=== PATIENT | male | born 1965 | race Caucasian/White ===

== ENCOUNTER 2022-02-09 12:57 | Outpatient (CLI) | payer BC, SELFPAY ==
--- NOTE | 2022-02-09 | ECG_ITS ---
Measurements Intervals [place] Rate: 90 P: 46 ID: 191 QRS: -32 QRSD: 98 T: 46 QT: 351 QTc: 430 Interpretive Statements SINUS RHYTHM WITH SINUS ARRHYTHMIA LEFT AXIS DEVIATION BASELINE WANDER- I, AVR, AVL BORDERLINE ECG NO PREVIOUS ECG AVAILABLE FOR COMPARISON Electronically Signed On 02-09-2022 15:50:52 CDT by Lance Johns D.O.
[2022-02-09 13:28] LABS: Hematocrit 45.2 % (42.0-52.0); Hemoglobin 15.5 g/dL (14.0-18.0); Mean Corpuscular HGB Conc 34.3 g/dl (32-36); Mean Corpuscular Hemoglobin 31.2 pg (26-34); Mean Corpuscular Volume 90.9 fl (80-100); Mean Platelet Volume 9.9 fl (7.4-10.4); Platelet Count Result 241 k/mm3 (150-375); Red Blood Count 4.97 M/mm3 (4.6-6.20); Red Cell Distribution Width 12.5 % (11.5-14.5); White Blood Count 7.2 K/mm3 (4.5-10.0)
[2022-02-09 13:39] LABS: Alanine Aminotransferase 26 U/L (6-50); Albumin Level 4.4 g/dL (3.5-5.1); Alkaline Phosphatase 85 U/L (38-126); Anion Gap 10 mmol/L (8-16); Aspartate Amino Transferase 27 U/L (17-59); Bilirubin,Total 0.6 mg/dL (0.2-1.3); Blood Urea Nitrogen 13 mg/dL (9-20); Calcium 9.1 mg/dL (8.4-10.2); Carbon Dioxide 28 mmol/L (22-30); Chloride 103 mmol/L (98-107); Estimated Glomerular Filt Rate > 60; Glucose 100 mg/dL (65-110); Potassium 3.6 mmol/L (3.4-5.0); Sodium 141 mmol/L (137-145)
== END 2022-02-09 12:58 | disposition home or self-care (01) ==
PROVIDERS: PCP Orthopaedic Surgery; Visit Provider Orthopaedic Surgery
DX: Z01.818 Encounter for other preprocedural examination (principal); R94.31 Abnormal electrocardiogram [ECG] [EKG]
CPT/HCPCS: 36415; 80053; 85027; 93005

== ENCOUNTER 2022-09-04 08:24 | Outpatient (CLI) | payer BC, SELFPAY ==
--- NOTE | 2022-09-04 | ECG_ITS ---
Measurements Intervals [place] Rate: 61 P: 48 IN: 191 QRS: -34 QRSD: 96 T: 31 QT: 406 QTc: 412 Interpretive Statements SINUS RHYTHM MARKED LEFT AXIS DEVIATION [QRS AXIS < -30] ABNORMAL ECG COMPARED TO ECG 02/09/2022 13:49:29 NO SIGNIFICANT CHANGES Electronically Signed On 09-04-2022 15:29:52 CDT by Tavo Grant M.D.
[2022-09-04 08:49] LABS: Hematocrit 46.2 % (42.0-52.0); Hemoglobin 15.5 g/dL (14.0-18.0); Mean Corpuscular HGB Conc 33.5 g/dl (32-36); Mean Corpuscular Hemoglobin 31.2 pg (26-34); Mean Platelet Volume 10.1 fl (7.4-10.4); Platelet Count Result 257 k/mm3 (150-375); Red Blood Count 4.97 M/mm3 (4.6-6.20); Red Cell Distribution Width 13.1 % (11.5-14.5); White Blood Count 5.7 K/mm3 (4.5-10.0)
[2022-09-04 10:07] LABS: Alanine Aminotransferase 28 U/L (6-50); Albumin Level 4.5 g/dL (3.5-5.1); Alkaline Phosphatase 88 U/L (38-126); Anion Gap 6 mmol/L (8-16); Aspartate Amino Transferase 27 U/L (17-59); Blood Urea Nitrogen 29 mg/dL (9-20); Calcium 8.9 mg/dL (8.4-10.2); Carbon Dioxide 30 mmol/L (22-30); Chloride 104 mmol/L (98-107); Estimated Glomerular Filt Rate > 60; Glucose 112 mg/dL (65-110); Potassium 3.9 mmol/L (3.4-5.0); Sodium 140 mmol/L (137-145)
== END 2022-09-04 08:25 | disposition home or self-care (01) ==
PROVIDERS: PCP Orthopaedic Surgery; Visit Provider Orthopaedic Surgery
DX: Z01.818 Encounter for other preprocedural examination (principal)
CPT/HCPCS: 36415; 80053; 85027; 93005

== ENCOUNTER 2024-02-28 15:39 | Emergency (ER) | payer BC, SELFPAY ==
--- NOTE | ~2024-02-28 | XR_ITS ---
EXAMINATION: XR foot RT min 3V DATE: 02/28/2024 16:06 INDICATION: Right foot pain. TECHNIQUE: 4 views of right foot were obtained. COMPARISON: None. FINDINGS: Alignment is normal. No fracture. There is mild osteoarthritis of first metatarsophalangeal joint and some of the interphalangeal joints and midfoot joints. There is an enthesophyte at plantar aspect of calcaneal tuberosity. IMPRESSION: 1. Mild polyarticular osteoarthritis. Reviewed, dictated and finalized at location A.
[2024-02-28 15:50] VITALS: BP 151/92; PULSE 75; RESP 18; TEMP 36.4; O2SAT 98
--- NOTE | 2024-02-28 16:39 | ED.LOWEXIN ---
HPI - Extremity Injury (Lower) General Chief Complaint: Extremity Injury, Lower Stated Complaint: Injured Right Foot Time Seen by Provider: 02/28/24 16:28 Source: patient, family () and RN notes reviewed Mode of arrival: ambulatory Limitations: no limitations History of Present Illness HPI Narrative: Patient presents today with pain in the right foot. Two days ago he missed a step on his porch and step-down approximately 18 in injuring his foot. Denies numbness or tingling. He has been taking ibuprofen and Tylenol with some relief. Pain increases with weight-bearing. Related Data Home Medications Medication Instructions Recorded Confirmed multivitamin (Multiple Vitamins 1 tablet PO DAILY 07/01/23 01/07/24 tablet) Allergies Allergy/AdvReac Type Severity Reaction Status Date / Time No Known Allergies Allergy Verified 01/07/24 11:31 Review of Systems Review of Systems: CONSTITUTIONAL: Denies body aches, fever, chills, or sweats. EYES: Denies visual changes, redness, or discharge. ENT: Denies rhinorrhea, congestion, sore throat, or otalgia. CARDIOVASCULAR: Denies chest pain, palpitations, or edema. RESPIRATORY: Denies cough or dyspnea. GASTROINTESTINAL: Denies abdominal pain, nausea, vomiting, or diarrhea. GENITOURINARY: Denies dysuria or hematuria. SKIN: Denies rash, itching, or wounds. MUSCULOSKELETAL: Denies back pain. + right foot pain NEUROLOGIC: Denies headache, numbness, tingling, or weakness. PSYCH: Denies depression or anxiety. [facility] Past Medical History Medical History Hypertension Surgical History Surgical History Hx of prostate biopsy 2009 Family History Family History Father Hypertension Heart disease Cerebrovascular accident Sibling Hypertension Mother Diabetes mellitus Anxiety and depression Social History Social History Smoking status: Never smoker Alcohol intake: never Substance use type: does not use Lack of Transportation: No Lack of Food: Never True Current Housing: Decline to Answer Concerned About Future Housing: Decline to Answer Difficulty Paying Gas/Electric Bills: Decline to Answer Difficulty Paying for Meds: Decline to Answer Currently Unemployed: Decline to Answer Education: Decline to Answer Comments At time of signature, I have reviewed and agree with nursing past medical, surgical, social and family history unless otherwise noted. Please see nursing chart for further information. There is no relevant family history pertinent to the presenting complaint Exam Narrative: GENERAL: Well-appearing, well-nourished, and in no acute distress. HEAD: Normocephalic, atraumatic. EYES: EOMI. No redness or drainage. Conjunctivae normal. ENT: Mucous membranes pink and moist. NECK: Normal AROM. CHEST: No respiratory distress. EXTREMITIES: Right foot: Patient localizes pain to the midfoot, dorsal aspect. No edema, ecchymosis noted. Nontender to palpation. Distal sensation intact. Capillary refill normal. Pedal pulse normal. Full range of motion of the toes and ankle. Ankle nontender. SKIN: Warm, dry, no rash. Capillary refill normal. Normal skin turgor. NEURO: No focal deficits. Alert and oriented x3. Gait steady. PSYCH: Normal affect. No signs of depression or anxiety. Course Course Level of Care: Express Care Visit Vital Signs Vital signs: Vital Signs Temperature 97.5 F L 02/28/24 15:50 Pulse Rate 75 02/28/24 15:50 Respiratory Rate 18 02/28/24 15:50 Blood Pressure 151/92 H 02/28/24 15:50 Pulse Oximetry 98 02/28/24 15:50 Oxygen Delivery Room Air 02/28/24 15:50 Temperature 97.5 F L 02/28/24 15:50 Pulse Rate 75 02/28/24 15:50 Respiratory
== END 2024-02-28 16:41 | disposition home or self-care (01) ==
PROVIDERS: Emergency Provider Nurse Practitioner; PCP Nurse Practitioner
DX: S96.911A Strain of unspecified muscle and tendon at ankle and foot level, right foot, initial encounter (principal); W10.9XXA Fall (on) (from) unspecified stairs and steps, initial encounter; I10 Essential (primary) hypertension
CPT/HCPCS: 73630; 99213; G0463

== ENCOUNTER 2024-04-02 13:07 | Emergency (ER) | payer BC, SELFPAY ==
[2024-04-02 13:12] VITALS: BP 150/87; PULSE 88; RESP 16; TEMP 36.2; O2SAT 98
[2024-04-02 13:19] VITALS: O2SAT 100
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
[2024-04-02] MEDS: TETANUS,DIPHTHERIA,AC PERTUSSIS ADULT (0.5 ML) BOOSTRIX IM (15:30)
[2024-04-02 15:32] VITALS: BP 155/96; PULSE 78; RESP 18; O2SAT 100
[2024-04-02] MEDS: predniSONE 20 MG TABLET 60 MG PO (18:00)
== END 2024-04-02 18:34 | disposition home or self-care (01) ==
PROVIDERS: Emergency Provider General Practice; PCP Nurse Practitioner
DX: H16.203 Unspecified keratoconjunctivitis, bilateral (principal); S05.8X2A Other injuries of left eye and orbit, initial encounter; S05.8X1A Other injuries of right eye and orbit, initial encounter; Z23 Encounter for immunization; I10 Essential (primary) hypertension; W40.8XXA Explosion of other specified explosive materials, initial encounter
CPT/HCPCS: 90471; 90715; 99283; A9270; J7512

== ENCOUNTER 2024-10-31 18:53 | Emergency (ER) | payer MEDICARE, SELFPAY ==
--- NOTE | 2024-10-31 18:54 | ED_ITS ---
HPI - URI/Sore Throat General Chief Complaint: Upper Respiratory Infection Stated Complaint: Sinus Infection Symptoms Source: patient and RN notes reviewed Mode of arrival: ambulatory Limitations: no limitations History of Present Illness HPI Narrative: Patient is a 59-year-old male who presents to the [facility] with complaints of sinus pain and pressure, nasal congestion, and left ear pain. He states that his symptoms have been present for the last few days. He states that he now has pain that radiates from the left ear with tenderness behind the ear. He endorses an infrequent nonproductive cough but denies chest pain or shortness of breath. He denies known fevers. His respirations are unlabored. He does not appear in any acute distress. Related Data Home Medications ?Medication ?Instructions ?Recorded ?Confirmed ?Last Taken ?Type multivitamin (Multiple Vitamins 1 tablet PO DAILY 07/01/23 10/31/24 Unknown History tablet) metaxalone 800 mg tablet mg PO 07/05/24 07/05/24 Unknown History Allergies Allergy/AdvReac Type Severity Reaction Status Date / Time No Known Allergies Allergy Verified 10/31/24 19:05 Review of Systems Review of Systems: CONSTITUTIONAL: Denies fever, chills, or sweats. EYES: Denies visual changes, redness, or discharge. ENT: Reports otalgia but denies sore throat. Reports congestion. CARDIOVASCULAR: Denies chest pain, palpitations, or edema. RESPIRATORY: Denies cough or dyspnea. GASTROINTESTINAL: Denies abdominal pain, nausea, vomiting, or diarrhea. GENITOURINARY: Denies dysuria or hematuria. SKIN: Denies rash or itching. MUSCULOSKELETAL: Denies back pain, joint pain, or myalgia. NEUROLOGIC: Denies headache, numbness, or weakness. Pertinent positives per HPI. [facility] Past Medical History Medical History Hypertension Surgical History Surgical History Hx of lumbosacral spine surgery x2 2004 and 2009 Hx of prostate biopsy 2009 Family History Family History Father Hypertension Heart disease Cerebrovascular accident Sibling Hypertension Mother Diabetes mellitus Anxiety and depression Social History Social History Smoking status: Never smoker Alcohol intake: never Substance use type: does not use Lack of Transportation: No Lack of Food: Never True Current Housing: Decline to Answer Concerned About Future Housing: Decline to Answer Difficulty Paying Gas/Electric Bills: Decline to Answer Difficulty Paying for Meds: Decline to Answer Currently Unemployed: Decline to Answer Education: Decline to Answer Comments At the time of my signature, I reviewed and agree with the nursing past medical, surgical, social, and family history. There is no relevant family history pertinent to the patient complaint. Exam Narrative: GENERAL: This is a well-nourished, well-developed patient, in no apparent distress. HEAD: normocephalic, atraumatic. EYES: Sclera clear/white. Vision is grossly intact. EARS: External ears normal, auditory canals clear and without drainage, Right TM normal without perforation. Left TM erythematous and bulging. No mastoid tenderness. Hearing grossly intact. NOSE: External nose normal with no obvious nasal discharge, nares without redness, no rhinorrhea. THROAT: Mucous membranes moist, posterior pharynx clear. NECK: Neck supple, non-tender without lymphadenopathy, masses or thyromegaly. CARDIOVASCULAR: Regular rate and rhythm without murmurs, gallops, or rubs. RESPIRATORY: Clear to auscultation. Breath sounds equal bilaterally. No wheezes, rales, or rhonchi. GASTROINTESTINAL: Abdomen soft, non-tender, nondistended. Bowel sounds are active. No hepato-splenomegaly, or palpable masses. No guarding. SKIN: warm, intact with no suspicious lesions or rash, good texture and turgor. NEURO: awake, alert, and oriented to person, place and time. There were no obvious focal neurologic abnormalities. Course Course Level of Care: Express Care Visit Vital Signs Vital signs: Vital Signs Temperature 97.5 F L 10/31/24 18:59 Pulse Rate 79 10/31/24 18:59 Respiratory Rate 18 10/31/24 18:59 Blood Pressure 155/92 H 10/31/24 18:59 Pulse Oximetry 97 10/31/24 18:59 Oxygen Delivery Room Air 10/31/24 18:59 Temperature 97.5 F L 10/31/24 18:59 Pulse Rate 79 10/31/24 18:59 Respiratory Rate 18 10/31/24 18:59 Blood Pressure 155/92 H 10/31/24 18:59 Pulse Oximetry 97 10/31/24 18:59 Oxygen Delivery Room Air 10/31/24 18:59 Reviewed MDM - URI/Sore Throat MDM Narrative Medical decision making narrative: Take antibiotics as directed. May given ibuprofen and/or Tylenol as needed for pain and/or fever. Follow up with primary care provider in 7-10 days to have ear rechecked. Go to the ER for any new or worsening symptoms. Avoid smoking/second-hand smoke. Continue to take Tylenol or Motrin for pain. Increase your Vitamin C intake. Use a humidifier or vaporizer at night. Take Medications as prescribed. Drink plenty of water. 8-10 glasses per day. Use flonase 2 times per day for 5 days then as needed Take mucinex 2 times per day and be sure to take with 8oz of water. Follow up with Primary provider if not getting better. Differential Diagnosis Differential diagnosis: Likely upper respiratory infection, otitis media, sinusitis, viral infection and bronchitis Critical Care Time Critical Care Time Critical Care Time: No Discharge Plan Discharge Clinical Impression: Acute left otitis media Sinusitis Qualifiers: Sinusitis location: unspecified location Chronicity: acute Recurrence: non- recurrent Qualified Code(s): J01.90 - Acute sinusitis, unspecified Patient Disposition: Home Condition: Stable Instructions: Antibiotic Form, Sinusitis (ED), Ear Infection (ED) Additional Instructions: Take antibiotics as directed. May given ibuprofen and/or Tylenol as needed for pain and/or fever. Follow up with primary care provider in 7-10 days to have ear rechecked. Go to the ER for any new or worsening symptoms. Avoid smoking/second-hand smoke. Continue to take Tylenol or Motrin for pain. Increase your Vitamin C intake. Use a humidifier or vaporizer at night. Take Medications as prescribed. Drink plenty of water. 8-10 glasses per day. Use flonase 2 times per day for 5 days then as needed Take mucinex 2 times per day and be sure to take with 8oz of water. Follow up with Primary provider if not getting better. Patient Language: Samoan Prescriptions: New amoxicillin-pot clavulanate 875-125 mg tablet 1 tablet PO Q12H 10 Days Qty: 20 0RF fluticasone propionate [Flonase Allergy Relief] 50 mcg/actuation spray,suspension 1 spray intranasal BID Qty: 16 0RF Rx Instructions: administer into each nostril No Action multivitamin [Multiple Vitamins] Tablet 1 tablet PO DAILY metaxalone 800 mg tablet PO losartan 50 mg tablet See Rx Instructions .ROUTE .COMPLEX Qty: 90 1RF Dose Instruction: TAKE 1 TABLET BY MOUTH DAILY Rx Instructions: TAKE 1 TABLET BY MOUTH DAILY Follow-up/Referrals: UNKNOWN,DOCTOR [Non-Staff] - Time of Disposition: 19:11
[2024-10-31 18:59] VITALS: BP 155/92; PULSE 79; RESP 18; TEMP 36.4; O2SAT 97
== END 2024-10-31 19:17 | disposition home or self-care (01) ==
PROVIDERS: Emergency Provider Nurse Practitioner; PCP Nurse Practitioner
DX: H66.92 Otitis media, unspecified, left ear (principal); J01.90 Acute sinusitis, unspecified; I10 Essential (primary) hypertension
CPT/HCPCS: 99213; G0463

== ENCOUNTER 2025-02-07 10:17 | Outpatient (CLI) | payer MEDICARE, SELFPAY ==
--- OUTSIDE RECORDS SUMMARY | 2025-02-07 11:14 | XMS_ITS | Clinical Summary ---
Author Organization [facility] Address [address] [place] [address] Care Team Providers Care Lead Shop Operator Name Role Phone Jeremy Cortes MD Primary Care Provider + Source Comments [facility],non-owned Affiliates and Associated Physician Practices is amultiple site organization consisting of ambulatory clinics and hospital sitesin [place], [place], [place] and [place]. This disclosure is being madepursuant to the Care Everywhere program and may not contain all information available regarding this patient. Last updated 18.[facility] Allergies No known active allergies Medications * Be aware that medications may not be up to date on this document. Alwaysverify current medications with the patient. 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 Gender Identity Not on file Sexual Orientation Not on file Last Filed Vital Signs Vital Sign Reading Time Taken Comments Blood Pressure 142/90 12/29/2011 1:14 PM CDT Pulse 72 12/29/2011 1:14 PM CDT Temperature - - Respiratory Rate 16 12/29/2011 1:14 PM CDT Oxygen Saturation 99% 12/29/2011 1:14 PM CDT Inhaled Oxygen Concentration - - Weight - - Height - - Body Mass Index - - Plan of Treatment Health Maintenance Due Date Last Done Comments COLOGUARD (AGES 45-75) - COL ON CA SCREENING 1963 COLON MONITORING 1963 COLONOSCOPY - COLON CA SCREENING 1963 CT COLONOGRAPHY - COLON CA SCREENING 1963 Colorectal Cancer Screening 1963 FIT - COLON CA SCREENING 1963 FLEX SIG - COLON CA SCREENING 1963 LIPID TESTING 1963 HIV SCREENING 1978 HEPATITIS C SCREENING 01/20/1981 DTAP/TDAP/TD VACCINES (1 - Tdap) 1982 PNEUMOCOCCAL VACCINE 50+ (1 of 1 - PCV) 2013 ZOSTER VACCINE (1 of 2) 2013 DEPRESSION SCREENING 05/17/2024 COVID-19 VACCINE (1 - 2023-2 5 season) 2025 INFLUENZA VACCINE (#1) 2025 Respiratory Syncytial Virus (RSV) Vaccine Pt: or over 60 yrs (1 - 1-dose 75+ series) 2038 HEPATITIS B VACCINE Aged Out No longe r eligible based on patient's age to complete this topic HIB VACCINE Aged Out No longer eligi ble based on patient's age to complete this topic HPV VACCINE Aged Out No longer eligi ble based on patient's age to complete this topic MENINGOCOCCAL (Group B) VACC INE SHARED DECISION-MAKING Aged Out No longer eligibl e based on patient's age to complete this topic MENINGOCOCCAL GROUPS A/C/Y/W VACCINE Aged Out No longer eligible b ased on patient's age to complete this topic Insurance ANTH Care Teams Lead Shop Operator Relationship Specialty Start Date End Date Jeremy Cortes MD [address] [place] [id number] PCP - General 07/04/18
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
--- OUTSIDE RECORDS SUMMARY | 2025-02-07 11:14 | XMS_ITS | Clinical Summary ---
Author Organization [facility] Address [address] [place] [address] Care Team Providers Care Braddisher Name Role Phone Unavailable Primary Care Provider Unavailabl e Allergies No known active allergies Encounters Date Type Department Care Team Description 01/30/2025 External Device Data [facility] ABSTRACTION Provider, Abstract 01/16/2025 External Device Data [facility]CTION Provider, Abstract 01/02/2025 External Device Data [facility]CTION Provider, Abstract 12/20/2024 External Device Data [facility] Provider, Abstract 12/12/2024 External Device Data [facility]STRACTION Provider, Abstract 12/12/2024 External Device Data [facility]CTION Provider, Abstract 11/29/2024 External Device Data [facility] Provider, Abstract 11/29/2024 External Device Data [facility]STRACTION Provider, Abstract 11/14/2024 External Device Data [facility]STRACTION Provider, Abstract 11/14/2024 External Device Data [facility]STRACTION Provider, Abstract 11/14/2024 External Device Data [facility]STRACTION Provider, Abstract from Last 3 Months Social History Tobacco Use Types Packs/Day Years Used Date Smoking Tobacco: Never Assessed Feeling Safe Answer Date Recorded Are you in a relationship wi th someone who hurts you emotionally and/or physically? No 09/16/2024 Sex and Gender Information Value Date Recorded Sex Assigned at Not on file Legal Sex Male 11:37 PM CDT Gender Identity Not on file Sexual Orientation Not on file Last Filed Vital Signs Vital Sign Reading Time Taken Comments Blood Pressure 168/98 09/16/2024 7:51 PM CDT Pulse 74 09/16/2024 7:51 PM CDT Temperature 36.6 C (97.8 F) 09/16/2024 7:51 PM CDT Respiratory Rate 19 09/16/2024 7:51 PM CDT Oxygen Saturation 99% 09/16/2024 7:51 PM CDT Inhaled Oxygen Concentration - - Weight 103.4 kg (228 lb) 09/16/2024 3:32 PM CDT Height 180.3 cm (5' 11) 09/16/2024 3:32 PM CDT Body Mass Index 31.8 09/16/2024 3:32 PM CDT Plan of Treatment Health Maintenance Due Date Last Done Comments Pre-Diabetes and Diabetes Screening 1965 COLORECTAL SCREENING 01/26/2008 Colorectal Cancer Screening 01/26/2008 FIT-DNA Q 3 years 01/26/2008 FIT/FOBT Q 1 year 01/26/2008 Flex Sig/CT Colonography Q 5 years 01/26/2008 ZOSTER VACCINE (2 of 2) 07/14/2022 05/19/2022 INFLUENZA VACCINE (#1) 2024 DTAP/TDAP/TD VACCINES (2 - Td or Tdap) 04/16/2031 RSV VACCINE (60+ or ) (1 - 1-dose 75+ series) 2038 Insurance [employer] PPO MCR [employer]
--- OUTSIDE RECORDS SUMMARY | 2025-02-07 11:14 | XMS_ITS | Encounter Summary ---
Author Organization [facility] Address [address] [place] [address] Care Team Providers Care Director Of Adult Epilepsy Name Role Phone Jeremy Cortes MD Primary Care Provider + Encounter Details Date Type Department Care Team (Late st Contact Info) Description 07/05/2018 Lab Requisition [facility] Care [facility] Lab [address] [facility] [place] [id number] Cindi Barbour MD [address] [facility] [address] [place] [address] Social History Tobacco Use Types Packs/Day Years Used Date Smoking Tobacco: Never Sex and Gender Information Value Date Recorded Sex Assigned at Not on file Legal Sex Male 2:01 PM ARBORICULTURE INSTRUCTOR Gender Identity Not on file Sexual Orientation Not on file documented as of this encounter Plan of Treatment Not on file documented as of this encounter Procedures Procedure Name Priority Date/Time Associated Diagnosis Comments DERMATOPATH TECHNICAL REPORT Routine 07/04/2018 12:00 AM ARBORICULTURE INSTRUCTOR documented in this encounter Results * DERMATOPATH TECHNICAL REPORT (07/04/2018 12:00 AM ARBORICULTURE INSTRUCTOR) Case Report Dermatopathology Report Case: [id number] Authorizing Provider: Cindi Barbour MD Collected: 07/04/2018 12:00 AM Pathologist: Lexx Rodriguez MD Received: 07/05/2018 07:02 AM Specimens: A) - Skin, left neck B) - Skin, right cheek 9 4:41 PM ARBORICULTURE INSTRUCTOR DERMATOPATHOLOGY LABORATORY Addendum 1 At the request of the diagnosing physician, the technical component for MART-1/Melan A on Specimen B was performed by [facility] Dermatopathology Laboratory. 9 4:41 PM ARBORICULTURE INSTRUCTOR DERMATOPATHOLOGY LABORATORY Addendum electronically signed by Lexx Rodriguez MD on 07/07/2018 at 1641 ARBORICULTURE INSTRUCTOR Clinical History A: SK vs BCC vs SCC. Non-healing. Check margins. B: Lentigo vs other. Irreg color. 4:41 PM [facility] DERMATOPATHOLOGY [facility]ORATORY Gross Description Specimen A: Received is one formalin filled container labeled with the patient's name and designated left neck. The specimen consists of a shave measuring [id number]. The margin is inked green. Jar 0. Specimen B: Received is one formalin filled container labeled with the patient's name and designated right cheek. The specimen consists of a shave measuring [id number]. Jar 0. [facility] Dermatopathology [facility] performed the technical component only. 4:41 PM [facility] DERMATOPATHOLOGY LABORATORY Embedded Images 4:41 PM [facility] DERMATOPATHOLOGY [facility]ORATORY DISCLAIMER An external and internal positive and negative controls are appropriate for the histochemical, immunohistochemical and immunofluorescence stain(s) in this case (if any), except where stated explicitly. The performance characteristics of the stain(s) cited in this report were developed and its performance characteristic determined by the Dermatopathology Laboratory at [facility], directed by Dr. Andry Rodriguez. These tests need not be, and therefore are not, approved by the [place] Food and Drug Administration. The tests are used for clinical purposes. 4:41 PM [facility] DERMATOPATHOLOGY LABORATORY at [address] ARBORICULTURE INSTRUCTOR Pathology/Cytology TISSUE SPECIMEN FROM SKIN / Unknown 07/04/2018 07/05/2018 7:02 AM ARBORICULTURE INSTRUCTOR Miscellaneous samples (specimen) TISSUE SPECIMEN FROM SKIN / Unknown 07/04/2018 07/05/2018 7:02 AM ARBORICULTURE INSTRUCTOR Cindi Barbour MD LAB - PATHOLOGY/CYTOLOGY OR DERABLES Edited Result - Final DERMATOPATHOLOGY LABORATORY [facility] - Department of Dermatology [address] [place] [address], [address] [place] [address], [facility] [phone] documented in this encounter Visit Diagnoses Not on filedocumented in this encounter Care Teams Director Of Adult Epilepsy Relationship Specialty Start Date End Date Jeremy Cortes MD [address] [address] PCP - General 07/04/18 documented as of this encounter
--- OUTSIDE RECORDS SUMMARY | 2025-02-07 11:14 | XMS_ITS | Encounter Summary ---
Author Organization [facility] Healthcare Address [address] [place] [address] Care Team Providers Care Video Technician Name Role Phone Lacey Bowden MD Primary Care Provider [phone] Erwin Hernandez MD Unavailable Kailyn Lopes MD Primary Care Provider No, Physician Primary Care Provider [phone] Ritika Green MD Unavailable [phone] No, Physician Primary Care Provider [phone] Encounter Details Date Type Department Care Team (Late st Contact Info) Description 02/23/2020 Telephone [facility] - Imaging [address] [place] [address] Transcribed Order, Provider Social History Tobacco Use Types Packs/Day Years Used Date Smoking Tobacco: Never Smokeless Tobacco: Never Alcohol Use Standard Drinks/Week Comments Not Currently 0 (1 standard drink = 0.6 oz pur e alcohol) AUDIT-C Answer Date Recorded Frequency of Alcohol Consumption Never 03/29/2019 Average Number of Drinks Not on file 019 Frequency of Binge Drinking Not on file 03/17 PHQ-2 Answer Date Recorded PHQ-2 Score 0 03/29/2019 Sex and Gender Information Value Date Recorded Sex Assigned at Not on file Legal Sex Male 2:42 PM CDT Gender Identity Male 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 Sexual Orientation Straight 04/15/2021 5: 19 PM 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 04/30/2023 05/07/2023 07/29/2023 3:05 AM C DT documented as of this encounter Care Teams Video Technician Relationship Specialty Start Date End Date Lacey Bowden MD [address] [address] PCP - General Internal Medicine 03/17/19 05/18/22 Kailyn Lopes MD [facility] [address] PCP - General Family Practice 05/19/22 12/02/22 No, Physician PCP - General 12/03/22 04/19/23 No, Physician PCP - General 05/24/24 Erwin Hernandez MD [address] [address] Yarding Supervisor Cardiovascular Disease 06/27/20 Ritika Green MD [address] [facility] [address] [place] [address] Referring Physician Family Medicine 03/20/24 documented as of this encounter
--- OUTSIDE RECORDS SUMMARY | 2025-02-07 11:14 | XMS_ITS | Clinical Summary ---
Author Organization [facility] Address [facility] [place] [address] Care Team Providers Care Social Media Manager Name Role Phone Iglesia Baker DO Primary Care Provider [phone] Allergies No known active allergies Medications multi vitamin/minera ls tablet Take 1 tablet by mouth daily. Active methylPREDNISo lone, PARVIZ, 4 MG tablet Take 1 tablet (4 mg total) by mouth see administration instructions. 1 each 9 Active Family History Medical History Relation Comments Diabetes Mother None Neg Hx Relation Status Comments Mother Social History Tobacco Use Types Packs/Day Years Used Date Smoking Tobacco: Never Alcohol Use Standard Drinks/Week Comments No 0 (1 standard drink = 0.6 oz pur e alcohol) AUDIT-C Answer Date Recorded Frequency of Alcohol Consumption Never 02/06/2019 Average Number of Drinks Not on file 019 Frequency of Binge Drinking Not on file 01/16 Sex and Gender Information Value Date Recorded Sex Assigned at Not on file Legal Sex Male 8:09 PM CDT Gender Identity Not on file Sexual Orientation Not on file Last Filed Vital Signs Vital Sign Reading Time Taken Comments Blood Pressure 168/103 02/06/2019 2:49 PM CDT Pulse 72 02/06/2019 2:49 PM CDT Temperature 36.8 C (98.3 F) 02/06/2019 2:49 PM CDT Respiratory Rate 16 02/06/2019 2:49 PM CDT Oxygen Saturation 100% 02/06/2019 2:49 PM CDT Inhaled Oxygen Concentration - - Weight 99.8 kg (220 lb) 02/06/2019 2:49 PM CDT Height 180.3 cm (5' 11) 02/06/2019 2:49 PM CDT Body Mass Index 30.68 02/06/2019 2:49 PM CDT Plan of Treatment Health Maintenance Due Date Last Done Comments Colorectal Cancer Screening Colonoscopy (10 Years) 1963 Annual Physical 1966 Hepatitis C 1981 DTaP, Tdap and Td Vaccines ( 1 - Tdap) 1982 Pneumococcal Vaccine: 50+ Ye ars (1 of 1 - PCV) 2013 Zoster Vaccines (1 of 2) 2013 COVID-19 Vaccine (1 - 2023-2 5 season) 2025 RSV Immunization or 60+ Years (1 - 1-dose 75+ series) 2038 Meningococcal B Vaccine Aged Out No l onger eligible based on patient's age to complete this topic Meningococcal Vaccine Aged Out No chelita donita eligible based on patient's age to complete this topic RSV Immunizations Under 20 Months Aged Out No longer eligible based on patient's age to complete this topic [place] [address] [address] Care Teams Social Media Manager Relationship Specialty Start Date End Date Iglesia Baker DO [address] [place] [address] PCP - General INTERNAL MEDICINE 02/06/19
[2025-02-07 19:04] LABS: Alanine Aminotransferase 28 U/L (6-50); Albumin Level 4.4 g/dL (3.5-5.1); Alkaline Phosphatase 85 U/L (38-126); Anion Gap 7 mmol/L (4-12); Aspartate Amino Transferase 48 U/L (17-59); Bilirubin,Total 0.6 mg/dL (0.2-1.3); Blood Urea Nitrogen 17 mg/dL (9-20); Calcium 9.0 mg/dL (8.4-10.2); Carbon Dioxide 29 mmol/L (22-30); Chloride 102 mmol/L (98-107); Cholesterol 164 mg/dL (0-200); Estimated Glomerular Filt Rate > 60; Glucose 97 mg/dL (65-110); HDL Direct 26 mg/dL; Potassium 4.4 mmol/L (3.4-5.0); Sodium 138 mmol/L (137-145); Total Protein 7.8 g/dL (6.3-8.2); Triglycerides 140 mg/dL (<150)
[2025-02-07 19:32] LABS: Hematocrit 44.7 % (42.0-52.0); Hemoglobin 14.8 g/dL (14.0-18.0); Immature Granulocyte Percent A 0.4 % (0-0.5); Lymphocytes Absolute Auto 2.01 K/mm3 (0.9-3.2); Mean Corpuscular HGB Conc 33.1 g/dl (32-36); Mean Corpuscular Hemoglobin 30.8 pg (26-34); Mean Corpuscular Volume 92.9 fl (80-100); Nucleated Red Blood Cells Absolute Auto 0.000 K/mm3 (0.0-0.012); Nucleated Red Blood Cells Perc 0.0 % (0.0-0.2); Platelet Count Result 269 k/mm3 (150-375); Red Blood Count 4.81 M/mm3 (4.6-6.20); White Blood Count 6.7 K/mm3 (4.5-10.0)
[2025-02-07 19:56] LABS: Prostate Specific Antigen 1.9 ng/mL (< OR = 4.0)
== END 2025-02-07 10:18 | disposition home or self-care (01) ==
LOC: ANHGOSHLAB 10:18
PROVIDERS: PCP Internal Medicine; Visit Provider Nurse Practitioner
DX: E78.2 Mixed hyperlipidemia (principal); R00.2 Palpitations; I10 Essential (primary) hypertension; Z13.220 Encounter for screening for lipoid disorders; Z12.5 Encounter for screening for malignant neoplasm of prostate
CPT/HCPCS: 36415; 80053; 80061; 84153; 85025; G0103